=== PATIENT | male | born 1960 | race Caucasian/White ===

== ENCOUNTER 2016-12-01 08:10 | Day surgery (SDC) | payer MEDICAID ==
[~2016-12-01] VITALS: Ht 175.3 cm; Wt 87.5 kg
--- NOTE | ~2016-12-01 | OR ---
PATIENT'S NAME: ERIN HARTMAN [facility] AGE: 56 Y [address] ROOM: [place] [id number] LOCATION: [facility] – [place] ADMIT DATE: 12/01/2016 OR/Procedure Report DISCHARGE DATE: FAMILY PHYSICIAN: Maurizio Ruffin ATTENDING PHYSICIAN: DANY CHAUDHARI SURGEON: Dany Chaudhari MD [employer] SPECIALIST: DATE OF PROCEDURE: 12/01/2016 PREOPERATIVE DIAGNOSIS: End-stage renal disease. POSTOPERATIVE DIAGNOSIS: End-stage renal disease. PROCEDURE: Right arm brachiocephalic fistula. TAFE TEACHER: Sol Loredo, nurse practitioner. She provided retraction as well as tying and wound closure. ANESTHESIA: General. ESTIMATED BLOOD LOSS: 10 mL. OPERATIVE FINDINGS: Good thrill and bruit in the fistula at the end of the case and strong radial and ulnar signal. DESCRIPTION OF PROCEDURE: The patient was brought to the operating room, placed supine on the table. Placed under general anesthesia, prepped and draped in a sterile manner. Preoperative time-out was performed. We made a standard incision 2 cm proximal to the antecubital fossa, dissected down the fascia, incised the fascia in a longitudinal manner. Dissected out the brachial artery in a 360-degree fashion. We then performed a similar maneuver for the cephalic vein. We then ligated and transected it distally. We gave 5000 units of heparin. We clamped proximally and distally the artery and made arteriotomy size of 4 mm and then did a standard 6-0 Prolene anastomosis from the vein to the artery. We removed the clamps. There was excellent flow in the fistula. There was a strong radial and ulnar signal. Heparin was reversed with protamine. Deep layers were closed with 2-0 and 3-0 Vicryl. Skin was closed with running 4-0 Monocryl. The patient tolerated the procedure well and awoken in the operating room and transferred to the recovery room and then to home later that day. DANY CHAUDHARI MD PATIENT'S NAME: ERIN HARTMAN [facility] AGE: 56 Y [address] ROOM: [place] [id number] LOCATION: [facility] [place] ADMIT DATE: 12/01/2016 OR/Procedure Report DISCHARGE DATE: FAMILY PHYSICIAN: Maurizio Ruffin ATTENDING PHYSICIAN: DANY CHAUDHARI/ruchil /[id number] d: 12/01/161914 t: 12/11/16 1627, OPERATIVE SUMMARY
[~2016-12-01 08:10] MED LIST: ARTIFICIAL TEAR15 ML OPHTH; ASPIRIN LO-DOSE81 MG PO; BENEFIBER)(NUTR1 PKT PO; COREG25 MG PO; COZAAR100 MG PO; DAKINS 0.25% (473 ML TOP; FISH OIL 1,2001 EACH PO; FLORASTOR250 MG PO; KEFLEX500 MG PO; LASIX40 MG PO; PRENATAL 1+1)(P1 TAB PO; ROCALTROL0.25 MCG PO; SODIUM BICARBO650 MG PO; ZOCOR40 MG PO
[2016-12-01 09:11] LABS: BASOPHIL % 0.4 %; EOSINOPHIL # 0.2 K/uL (0.0-0.5); HEMATOCRIT 31.8 % (37.0-53.0); HEMOGLOBIN 10.9 g/dL (12.0-17.0); IMMATURE GRANULOCYTE % 0.1 %; LYMPHOCYTE # 1.4 K/uL (0.8-4.0); LYMPHOCYTE % 18.8 %; MCH 32.4 pg (27.0-34.0); MCHC 34.3 gm/dL (32.0-36.5); MCV 94.6 fl (83.0-98.0); MONOCYTE # 0.5 K/uL (0.0-1.0); MONOCYTE % 6.3 %; MPV 10.7 fl (9.4-12.4); NEUTROPHIL # (ANC) 5.6 K/uL (1.4-9.0); NEUTROPHIL % 72.4 %; NRBC % 0 /100WBC (0-0.00); PLATELET COUNT 133 K/uL (150-450); RBC 3.36 M/uL (4.00-6.00); RDW-CV 12.8 % (11.9-14.6); WBC 7.7 K/uL (4.0-11.0)
[2016-12-01 09:30] LABS: ALBUMIN 3.8 gm/dL (3.5-5.0); CALCIUM 8.5 mg/dL (8.5-10.5); TOTAL BILIRUBIN 0.4 mg/dL (0.0-1.5); TOTAL PROTEIN 7.4 g/dL (6.0-8.4)
[2016-12-01 09:47] LABS: ANION GAP 12.1 (10.0-19.0); POTASSIUM 5.1 mMol/L (3.7-5.1)
[2016-12-01] MEDS ORDERED: NORCO 5-325 TA1 EACH PO (13:11)
== END 2016-12-01 15:00 | disposition disaster alternative care site (69) ==
LOC: GSDC 08:10 → GPOC 10:00 → GSDC 15:00
PROVIDERS: Surgery Vascular Surgery
PROC: 03170ZD Bypass Right Brachial Artery to Upper Arm Vein, Open Approach (ICD-10-PCS; principal; 2016-12-01)
DX: I12.0 Hypertensive chronic kidney disease with stage 5 chronic kidney disease or end stage renal disease (principal); E11.22 Type 2 diabetes mellitus with diabetic chronic kidney disease; N18.6 End stage renal disease; E11.319 Type 2 diabetes mellitus with unspecified diabetic retinopathy without macular edema; D64.9 Anemia, unspecified; Z79.82 Long term (current) use of aspirin; Z79.899 Other long term (current) drug therapy; Z98.890 Other specified postprocedural states; Z87.891 Personal history of nicotine dependence
CPT/HCPCS: J0360; J0690; J1644; J2001; J2405; J2720; J3010; J7030